=== PATIENT | female | born 1980 | race Caucasian/White ===

== ENCOUNTER 2024-02-29 10:56 | Outpatient (CLI) | payer OTHER, SELFPAY ==
--- NOTE | 2024-02-29 11:00 | US_ITS ---
WS: [id number] ULTRASOUND SOFT TISSUES scalp/forehead HISTORY: SUBCUTANEOUS MASS COMPARISON: None available. TECHNIQUE: 2-D and color Doppler imaging is submitted. Ultrasound is directed to the palpable area along the LEFT forehead. The palpable area corresponds to a very small hypoechoic mass with a central calcification measuring 0.5 x 0.5 x 0.3 cm. No increased vascularity. No additional masses. US/US soft tissue head neck 72240 IMPRESSION: A nonspecific hypoechoic mass with central calcification over the LEFT forehead . Favor this is probably a sebaceous cyst. If this continues to grow or become painful recommend follow-up with head CT.
== END 2024-02-29 10:57 | disposition home or self-care (01) ==
PROVIDERS: PCP Nurse Practitioner Family; Visit Provider Nurse Practitioner Family
DX: L72.0 Epidermal cyst (principal)
CPT/HCPCS: 76536